=== PATIENT | male | born 1985 | race Caucasian/White ===

== ENCOUNTER 2017-04-26 15:50 | Emergency (ER) | payer BC ==
[2017-04-26] MEDS ORDERED: Ibuprofen 800 MG Tab PO ONE (16:09)
[2017-04-26] MEDS ORDERED: methylPREDNISolone Sodium Succinate 125 MG/2 ML SDV IM ONE (16:09)
[2017-04-26 16:32] VITALS: BP 121/76
--- NOTE | 2017-04-26 16:40 | EDM.PDOC ---
ED HPI GENERAL MEDICAL PROBLEM - General Chief Complaint: Bite:Animal, Insect Stated Complaint: BEE STING Time Seen by Provider: 04/26/17 15:55 Source of Information: Reports: Patient History Limitations: Reports: No Limitations - History of Present Illness INITIAL COMMENTS - FREE TEXT/NARRATIVE: 31-year-old male who has had previous allergic reactions to bee stings was stung on his left arm. He felt like his throat was getting tight in his chest was getting tight and he was developing some rash on his left neck. He had an EpiPen but did not use it. In fact he came into the emergency room holding it in his hand. He did take 50 mg of Benadryl. He looks anxious but otherwise normal, no erythema or redness is obvious. He does not appear to be short of breath and his vitals are stable. Onset: Today, Sudden Location: Reports: Upper Extremity, Left Severity: Mild Associated Symptoms: Reports: Other (Left arm pain). Denies: Fever/Chills, Headaches, Shortness of Breath - Related Data Allergies Allergy/AdvReac Type Severity Reaction Status Date / Time No Known Allergies Allergy Verified 04/26/17 16:08 Home Meds: Home Meds Albuterol [IJD: Ventolin HFA] 04/26/17 [History] Past Medical History - Past Surgical History HEENT Surgical History: Reports: Myringotomy w Tube(s) Musculoskeletal Surgical History: Reports: Arthroscopic Knee ED ROS GENERAL - Review of Systems Review Of Systems: See Below Constitutional: Denies: Fever, Chills HEENT: Denies: Throat Swelling Respiratory: Denies: Shortness of Breath, Cough Cardiovascular: Denies: Chest Pain GI/Abdominal: Denies: Abdominal Pain Skin: Reports: Other (Small amount of redness developing in the left neck) Neurological: Denies: Headache ED EXAM, ANIMAL BITE - Physical Exam Exam: See Below Exam Limited By: No Limitations General Appearance: Alert, No Apparent Distress, Anxious Eye Exam: Bilateral Eye: Normal Inspection Throat/Mouth: Normal Inspection Head: Atraumatic Neck: Normal Inspection Respiratory/Chest: No Respiratory Distress, Lungs Clear Cardiovascular: Regular Rate, Rhythm Neurological: Alert, Oriented Skin Exam: Other (Patient has a small amount of redness developing on the left neck, possibly from him rubbing the area. It does not look like urticaria) Course - Vital Signs Last Recorded V/S: Last Vital Signs Temp 98.4 F 04/26/17 16:31 Pulse 101 H 04/26/17 16:31 Resp 14 04/26/17 16:31 BP 121/76 04/26/17 16:31 Pulse Ox - Orders/Labs/Meds Meds: Medications Discontinued Medications Generic Name Dose Route Start Last Admin Trade Name Hood PRN Reason Stop Dose Admin Ibuprofen 800 mg 04/26/17 16:04/26/17 16:30 Motrin PO 04/26/17 16:10 800 mg ONETIME ONE Administration Methylprednisolone Sodium Succinate 125 mg 04/26/17 16:09 04/26/17 16:31 Solu-Medrol IM 04/26/17 16:10 125 mg ONETIME ONE Administration - Re-Assessments/Exams Free Text/Narrative Re-Assessment/Exam: 04/26/17 16:40 Patient was given 125 mg of Solu-Medrol IM. He was observed for one hour and was stable on discharge. Departure - Departure Time of Disposition: 17:14 Disposition: Home, Self-Care 01 Condition: Good Clinical Impression: Bee sting reaction Qualifiers: Encounter type: initial encounter Injury intent: accidental or unintentional Qualified Code(s): T63.441A - Toxic effect of venom of bees, accidental ( unintentional), initial encounter - Discharge Information Instructions: Insect Bite, [id number] Referrals: PCP,None [Primary Care Provider] - Forms: ED Department Discharge Care Plan Goals: Repeat Benadryl 50 mg every 4-6 hours for itching or rash. Return anytime if worsening such as difficulty breathing or other concerns.
== END 2017-04-26 17:14 | disposition home or self-care (01) ==
LOC: JP.ED 15:50
DX: T63.441A Toxic effect of venom of bees, accidental (unintentional), initial encounter (principal); Z96.22 Myringotomy tube(s) status
CPT/HCPCS: 96372; 99283; A9270; J2930